=== PATIENT | female | born 1980 | race Caucasian/White ===

== ENCOUNTER 2021-06-17 02:07 | Emergency (ER) | payer OTHER ==
[~2021-06-17] VITALS: Ht 165.1 cm; Wt 59.0 kg
[2021-06-17 02:15] VITALS: BP 125/77
[2021-06-17] MEDS ORDERED: FLUORESCEIN SODIUM OPHTH 1 EA STRIP ONE (02:36)
[2021-06-17] MEDS ORDERED: ERYT3.5O9 LEFTEYE (02:57)
== END 2021-06-17 03:06 | disposition home or self-care (01) ==
LOC: ER 02:07
DX: S05.02XA Injury of conjunctiva and corneal abrasion without foreign body, left eye, initial encounter (principal); W55.03XA Scratched by cat, initial encounter; Y93.89 Activity, other specified; Y92.89 Other specified places as the place of occurrence of the external cause; Y99.8 Other external cause status